=== PATIENT | female | born 1990 | race Caucasian/White ===

== ENCOUNTER 2020-05-16 16:30 | Emergency (ER) | payer SELFPAY ==
[2020-05-16 16:37] VITALS: BP 117/78; PULSE 97; RESP 18; TEMP 36.8; O2SAT 99; BMI 23.5
--- NOTE | 2020-05-16 16:41 | XRR_ITS ---
PROCEDURE INFORMATION: Exam: XR Chest, 1 View Exam date and time: 05/16/2020 7:17 PM Age: 30 years old Clinical indication: Dyspnea; Additional info: SOB TECHNIQUE: Imaging protocol: XR of the chest Views: 1 view. COMPARISON: No relevant prior studies available. FINDINGS: Lungs: Lungs are clear bilaterally. Pleural space: No pleural effusion. No pneumothorax. Heart/Mediastinum: The cardiac silhouette and mediastinal contours are unremarkable. Bones/joints: Unremarkable for age. XR/XR chest 1V portable [id number] IMPRESSION: No acute cardiopulmonary process.
[2020-05-16 17:11] LABS: Basophils % 0.4 %; Eosinophils % 0.2 %; Hematocrit 37.4 % (37.0-47.0); Hemoglobin 11.9 g/dL (11.5-15.3); Lymphocytes # 0.9 10^3/uL (0.8-4.8); Lymphocytes % 16.6 %; Mean Corpuscular HGB Conc 31.8 g/dL (30.0-36.0); Mean Corpuscular Hemoglobin 27.4 pg (28.0-34.0); Mean Corpuscular Volume 86.2 fL (81-99); Mean Platelet Volume 10.2 fL (7.4-10.4); Monocytes # 0.5 10^3/uL (0.2-0.9); Monocytes % 9.5 %; Neutrophils # 3.93 10^3/uL (1.8-7.7); Neutrophils % 73.1 %; Nucleated Red Blood Cells % 0 %; Platelet Count 199 10^3/cmm (130-400); Red Blood Count 4.34 10^6/uL (4.1-5.3); Red Cell Distribution Width 12.5 % (12.1-15.1); White Blood Count 5.4 10^3/uL (4.0-10.0)
[2020-05-16 17:24] LABS: Rapid Strep A Test Negative (Negative)
[2020-05-16 17:29] LABS: D Dimer 1.12 ug/mIFEU (0-0.59)
[2020-05-16 17:31] LABS: Influenza A by IFA Negative (Negative); Influenza B by IFA Negative (Negative)
[2020-05-16 17:35] LABS: Alanine Aminotransferase 95 U/L (0-33); Albumin Level 4.4 g/dL (3.5-5.2); Alkaline Phosphatase 112 IU/L (35-105); Anion Gap 12.4 (5-19); Aspartate Amino Transferase 78 U/L (0-32); Blood Urea Nitrogen 8 mg/dL (6-20); Calcium 8.7 mg/dL (8.5-10.5); Carbon Dioxide 26 mmol/L (22-29); Chloride 103 mmol/L (98-107); Globulin 3.6 g/dL (1.3-4.6); Glomerular Filtration Rate 143.9 mL/min (90-130); Glucose 130 mg/dL (65-115); Osmolality Calculated 284 mOsm/kg (285-295); Potassium 3.4 mmol/L (3.5-5.1); Sodium 138 mmol/L (136-145); Total Bilirubin 1.8 mg/dL (0.15-1.2)
--- NOTE | 2020-05-16 19:47 | CTR_ITS ---
PROCEDURE INFORMATION: Exam: CT Angiography Chest With Contrast Exam date and time: 05/16/2020 7:49 PM Age: 30 years old Clinical indication: Cough and fever and shortness of breath; Patient HX: C/O fever, cough , SOB w +d-dimer; Additional info: SOB, d-dimer elevated TECHNIQUE: Imaging protocol: Computed tomographic angiography of the chest with intravenous contrast. Sagittal and coronal reformatted images were created and reviewed. 3D rendering: MIP and/or 3D reconstructed images were created by the technologist. Radiation optimization: All CT scans at this facility use at least one of these dose optimization techniques: automated exposure control; mA and/or kV adjustment per patient size (includes targeted exams where dose is matched to clinical indication); or iterative reconstruction. Contrast material: OMNI 350; Contrast volume: 95 ml; Contrast route: INTRAVENOUS (IV); COMPARISON: CR XR chest 1V portable [id number] 05/16/2020 7:09 PM RADIATION DOSE METRICS: Total DLP (mGy-cm): 522.35 FINDINGS: Pulmonary arteries: No filling defects in the pulmonary arteries to suggest pulmonary embolism. Aorta: No evidence for aortic aneurysm or aortic dissection. 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 Lungs: Tracheobronchial structures are patent. Lungs are clear bilaterally. Noncalcified nodules in the right middle lobe and left upper lobe, the largest has an average measurement 4 mm (series 3, images 33, 36, and 38). Pleural space: No pneumothorax. No pleural effusion. Heart: The heart is unremarkable. No cardiomegaly. No pericardial effusion. Mediastinal space: The esophagus is unremarkable. Residual thymic tissue in the anterior/superior mediastinum. No mediastinal hematoma. No pneumomediastinum. Lymph nodes: No lymphadenopathy. Liver: The visualized liver is unremarkable. Pancreas: The visualized pancreas is unremarkable. No pancreatic ductal dilatation. Spleen: The visualized spleen is unremarkable. Adrenals: The right and left adrenal glands are unremarkable. Kidneys and ureters: The visualized right and left kidneys are unremarkable. Bones/joints: 2 bone islands in the left humeral head. 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 Soft tissues: The extrathoracic soft tissues are unremarkable. CT/CT angio chest PE protcl [id number] IMPRESSION: 1. No evidence for pulmonary embolism. 2. No acute cardiopulmonary process. 3. Noncalcified nodules in the right middle lobe and left upper lobe, the largest has an average measurement 4 mm. If patient does not have known cancer, follow up should be based on clinical information because of the low risk of cancer in this age group. (Zi et al., Fleischner Society, 2017) 4. Incidental/nonacute findings are listed in the report. Radiation Dose CTDIVOL = (mGy): DLP = 522.35 (mGy-cm)
[2020-05-16 20:15] VITALS: BP 122/63; PULSE 103; RESP 16; O2SAT 98
[2020-05-16 20:36] LABS: SARS Covid-2 Antigen Negative (Negative)
[2020-05-16] MEDS: iohexol 350 mg/mL 100 mL Btl IV (21:33)
[2020-05-16] MEDS: dexamethasone 4 mg/mL INJ 8 MG IVP (22:39)
[2020-05-16 22:47] VITALS: BP 104/65; PULSE 77; RESP 18; O2SAT 99
--- NOTE | 2020-05-17 04:37 | W.ED.SOB ---
HPI - SOB/Dyspnea General: Chief Complaint: Shortness of Breath/Dyspnea Stated Complaint: sob Time Seen by Provider: 05/16/20 19:25 History of Present Illness: HPI Narrative: 30-year-old healthy female presents with shortness of breath. Her main complaint is that of a sore throat. She has a sick child with viral pneumonia, COVID negative. Her is also tested negative for COVID. She is not had fever. She was tested for strep and is negative as an outpatient. She had some shortness of breath earlier which is mostly resolved. MD elicited complaint: shortness of breath Onset (ago): day(s) Context: recent illness Timing: intermittent Exacerbating factors: nothing Relieving factors: nothing Associated symptoms: Reports nausea and vomiting; Deny chest pain, dizziness or fever(s) Treatment prior to arrival: none Review of Systems Const: Denies: fever(s) Eyes: Denies: change in vision or blurry vision ENMT: Denies: swelling of lips/tongue, bleeding gums, dental pain, epistaxis, post nasal drip or sinus pain Card: Denies: chest pain Resp: Reports: dyspnea; Denies: productive cough, non-productive cough or wheezing GI: Reports: nausea and vomiting : Denies: dysuria or hematuria Musc: Reports: back pain; Denies: neck pain Skin/Breast: Denies: rash or erythema Neuro: Denies: dizziness Psych: Denies: anxiety PFSH ED PFSH: Medical History (Updated 05/16/20 @ 22:20 by Luis Alfredo Carrillo DO) Fracture (~1996) Left arm Surgical History No significant past surgical history Family History Unknown Cancer Maternal great aunt - Breast cancer Grandfather Cancer Throat cancer Social History Smoking and tobacco status: former smoker Quit status (tobacco): has quit using tobacco Year quit tobacco: 05/2015 Former quit date comment: Started smoking at age 20 smoked up to 3 packs per week until she quit 05/21 Alcohol intake: never Other details last substance use: Denies drug use Number of children: 4 Female Reproductive History: Date of last menstrual period: 05/16/20 Para: 4 Spontaneous abortions: No Physical Exam Const: GENERAL APPEARANCE: well developed ORIENTATION/CONSCIOUSNESS: Yes oriented to person, Yes oriented to place and Yes oriented to time HENMT: COMMON NORMALS: normocephalic, external ears normal and Normal external nose present HEAD & SCALP: normocephalic FACE & SINUS: normal facial exam NOSE: Normal external nose present and No nasal discharge present EXTERNAL EAR: Yes external ears normal TEETH & GINGIVA: no abnormal tooth and associated gingiva THROAT: abnormal tonsil bilateral erythema and exudates; no peritonsillar mass Eye: COMMON NORMALS: Equal, round and reactive pupils present, EOMs intact bilaterally and conjunctivae normal EYELID: eyelids normal CONJUNCTIVA: Yes conjunctivae normal PUPIL: Yes Equal, round and reactive pupils present Neck/C-Spine: GENERAL: No tracheal deviation Chest: COMMONS NORMALS: normal inspection of the chest CHEST: No tenderness Resp: COMMON NORMALS: clear to auscultation bilaterally EFFORT & INSPECTION: No tachypneic, No respiratory distress, No retractions, No uses accessory muscles and No tracheal deviation AUSCULTATION: clear to auscultation bilaterally, no rhonchi, no wheezes and lung sounds not diminished Cardio: COMMON NORMALS: regular rate and regular rhythm RATE: regular rate RHYTHM: regular rhythm HEART SOUNDS: no murmurs PERIPHERAL PULSES: radial pulses present GI: INSPECTION: No abdominal distension AUSCULTATION: No Hyperactive bowel sounds present and No Hypoactive bowel sounds present PALPATION: No Guarding due to palpation present (GI) and No Rigid due to palpation PERCUSSION: no dullness to percussion and no tympanic to percussion Neuro: SENSORIUM/ORIENTATION: Yes oriented to person, Yes oriented to place and Yes oriented to time Psych: COMMON NORMALS: mental status grossly normal Skin: COMMON NORMALS: no rashes or lesions noted GENERAL SKIN EXAM: no rashes or lesions noted Course Vital Signs: Vital signs: Vital Signs Temperature 98.3 F 05/16/20 16:37 Pulse Rate 77 05/16/20 22:47 Respiratory Rate 18 05/16/20 22:47 Blood Pressure 104/65 05/16/20 22:47 Pulse Oximetry 99 05/16/20 22:47 MDM - SOB/Dyspnea MDM Narrative: Medical decision making narrative: 30-year-old female with mainly viral symptoms. Earlier in the week, she had had a right-sided pinkeye, some throat pain. This progressed to worsening pharyngitis, and some shortness of breath that is now resolved. She had a d-dimer that was 1.1 ordered in triage. Her COVID test is negative. CTA is performed due to the d-dimer, and is negative as well. No pneumonia. Strep was repeated and is negative as well. There is no evidence of peritonsillar abscess. She will be treated for viral pharyngitis. Lab Data: Labs: Lab Results 05/16/20 05/16/20 05/16/20 Range/Units 16:45 16:45 17:08 WBC 5.4 (4.0-10.0) 10^3/ uL RBC 4.34 (4.1-5.3) 10^6/u L Hgb 11.9 (11.5-15.3) g/dL Hct 37.4 (37.0-47.0) % MCV 86.2 (81-99) fL MCH 27.4 L (28.0-34.0) pg MCHC 31.8 (30.0-36.0) g/dL RDW 12.5 (12.1-15.1) % Plt Count 199 (130-400) 10^3/c mm MPV 10.2 (7.4-10.4) fL Neut % (Auto) 73.1 % Lymph % (Auto) 16.6 % [place] % (Auto) 9.5 % Eos % (Auto) 0.2 % Baso % (Auto) 0.4 % Neut # (Auto) 3.93 (1.8-7.7) 10^3/u L Lymph # (Auto) 0.9 (0.8-4.8) 10^3/u L [place] # (Auto) 0.5 (0.2-0.9) 10^3/u L Eos # (Auto) 0.0 (0.0-0.8) 10^3/u L Baso # (Auto) 0.0 (0.0-0.1) 10^3/u L Nucleated RBC % (a uto) 0 % Nucleated RBCs # 0.0 /100WBC D-Dimer (0-0.59) ug/mIFE U Sodium (136-145) mmol/L Potassium (3.5-5.1) mmol/L Chloride (98-107) mmol/L Carbon Dioxide (22-29) mmol/L Anion Gap (5-19) BUN (6-20) mg/dL Creatinine (0.5-0.9) mg/dL GFR Calculation (90-130) mL/min Glucose (65-115) mg/dL Calculated Osmolal ity (285-295) mOsm/k g Calcium (8.5-10.5) mg/dL Total Bilirubin (0.15-1.2) mg/dL AST (0-32) U/L ALT (0-33) U/L Alkaline Phosphata se (35-105) IU/L Total Protein (6.6-8.7) g/dL Albumin (3.5-5.2) g/dL Globulin (1.3-4.6) g/dL Influenza Type A A g Negative (Negative) Influenza Type B A g Negative (Negative) SARS-CoV-2 Ag (Rap id) (Negative) Group A Strep Rapi d Negative (Negative) 05/16/20 05/16/20 05/16/20 Range/Units 17:08 17:08 20:08 WBC (4.0-10.0) 10^3/ uL RBC (4.1-5.3) 10^6/u L Hgb (11.5-15.3) g/dL Hct (37.0-47.0) % MCV (81-99) fL MCH (28.0-34.0) pg MCHC (30.0-36.0) g/dL RDW (12.1-15.1) % Plt Count (130-400) 10^3/c mm MPV (7.4-10.4) fL Neut % (Auto) % Lymph % (Auto) % [place] % (Auto) % Eos % (Auto) % Baso % (Auto) % Neut # (Auto) (1.8-7.7) 10^3/u L Lymph # (Auto) (0.8-4.8) 10^3/u L [place] # (Auto) (0.2-0.9) 10^3/u L Eos # (Auto) (0.0-0.8) 10^3/u L Baso # (Auto) (0.0-0.1) 10^3/u L Nucleated RBC % (a uto) % Nucleated RBCs # /100WBC D-Dimer 1.12 H (0-0.59) ug/mIFE U Sodium 138 (136-145) mmol/L Potassium 3.4 L (3.5-5.1) mmol/L Chloride 103 (98-107) mmol/L Carbon Dioxide 26 (22-29) mmol/L Anion Gap 12.4 (5-19) BUN 8 (6-20) mg/dL Creatinine 0.5 (0.5-0.9) mg/dL GFR Calculation 143.9 H (90-130) mL/min Glucose 130 H (65-115) mg/dL Calculated Osmolal ity 284 L (285-295) mOsm/k g Calcium 8.7 (8.5-10.5) mg/dL Total Bilirubin 1.8 H (0.15-1.2) mg/dL AST 78 H (0-32) U/L ALT 95 H (0-33) U/L Alkaline Phosphata se 112 H (35-105) IU/L Total Protein 8.0 (6.6-8.7) g/dL Albumin 4.4 (3.5-5.2) g/dL Globulin 3.6 (1.3-4.6) g/dL Influenza Type A A g (Negative) Influenza Type B A g (Negative) SARS-CoV-2 Ag (Rap id) Negative (Negative) Group A Strep Rapi d (Negative) Discharge Plan Discharge Patient Disposition: Home Clinical Impression: Acute viral pharyngitis Condition: Stable Prescriptions: New Zofran 4 mg tablet 4 mg PO Q6H Qty: 10 RF: 0 [place] 5-325 mg tablet 1 tab PO Q8H PRN (Reason: pain) Qty: 7 RF: 0 No Action No Known Home Medications RF: 0 Discharge Orders: Discharge Order (Routine); Ordered 05/16/20 Ordered By: Luis Alfredo Carrillo Discharge Diet: Advance as tolerated Discharge Activity: Increase activity as tolerated Patient Instructions: Pharyngitis (ED) Activity Restrictions/Additional Instructions: Return for continued fever greater than 100, vomiting liquids or medications, other concerning symptoms. Discharge Date/Time: 05/16/20 22:48 Coding Level of Care Code ED Medical Assistant Cardiology for Chg Fwd Exam Comprehensive
== END 2020-05-16 22:48 | disposition home or self-care (01) ==
PROVIDERS: Family Medicine; Emergency Provider Emergency Medicine
DX: J02.8 Acute pharyngitis due to other specified organisms (principal); Z87.891 Personal history of nicotine dependence
CPT/HCPCS: 12345; 36415; 71045; 71275; 80053; 85025; 85378; 87081; 87426; 87804; 87880; 96374; 99282; 99283; J1100; Q9967

== ENCOUNTER → 2020-11-26 08:59 | Outpatient (BNVA) | payer MEDICAID, SELFPAY | PROVIDERS: PCP Electrodiagnostic Medicine; Visit Provider Obstetrics & Gynecology | DX: Z30.9 Encounter for contraceptive management, unspecified (principal); Z30.09 Encounter for other general counseling and advice on contraception | CPT/HCPCS: 81025 ==

== ENCOUNTER 2021-05-13 23:30 | Emergency (ER) | payer OTHER, SELFPAY ==
[2021-05-13 23:54] VITALS: BP 122/80; PULSE 86; RESP 16; TEMP 37; O2SAT 99; BMI 24.9
--- NOTE | 2021-05-14 00:36 | W.ED.EXTPRO ---
HPI - Extremity Problem General: Chief complaint: Extremity Problem,Nontraumatic Stated complaint: Left leg pain Time Seen by Provider: 05/14/21 00:36 History of Present Illness: HPI Narrative: 31-year-old female comes in today with lower leg discomfort. Patient reports that it is worse on the left leg but she gets pain in both legs. Patient reports that when she had COVID-19 she had significant discomfort in bilateral lower extremities. Patient 2 days ago had been given the [employer] vaccine and since then had increased pain and discomfort to the lower extremities. Patient appears well. Patient appears no acute distress. Patient denies any fever or nausea or vomiting. Review of Systems General: Reports: 10 or more systems reviewed and unremarkable except in HPI and below Musc: Reports: other (Bilateral lower extremity pain) PFSH ED PFSH: Medical History No pertinent past medical history Denies diabetes, asthma, hypertension, seizures, DVT/PE PCP: Dr. Richter Surgical History No significant past surgical history Family History Grandfather Cancer Throat cancer Stroke maternal Family/Other Breast cancer maternal great aunt Mother Hypertension Denies family history of Colon cancer Ovarian cancer Diabetes Hyperlipidemia Uterine cancer Thyroid condition Social History Smoking and tobacco status: former smoker Quit status (tobacco): has quit using tobacco Year quit tobacco: 05/2015 Former quit date comment: Started smoking at age 20 smoked up to 3 packs per week until she quit 05/21 Alcohol intake: never Other details last substance use: Denies drug use Number of children: 4 Female Reproductive History: Date of last menstrual period: 05/16/20 Para: 4 Spontaneous abortions: No Physical Exam Const: COMMON NORMALS: no acute distress and patient oriented x3 GENERAL APPEARANCE: cooperative HENMT: COMMON NORMALS: normocephalic and Normal external nose present HEAD & SCALP: normal to inspection and normocephalic NOSE: Normal external nose present MOUTH: Normal oral and palatal mucosa present THROAT: posterior oropharynx normal Eye: GENERAL EYE: appearance normal, both eyes and all related structures Neck/C-Spine: COMMON NORMALS: full ROM Lymph: LYMPHATIC: no lymphadenopathy noted Chest: COMMONS NORMALS: normal inspection of the chest Resp: COMMON NORMALS: normal respiratory effort EFFORT & INSPECTION: Yes able to speak in complete sentences Cardio: COMMON NORMALS: regular rate and regular rhythm RATE: regular rate RHYTHM: regular rhythm GI: COMMON NORMALS: non-tender Back/Pelvis: COMMON NORMALS: thoracic and lumbar spine normal to inspection Extremity: COMMON NORMALS: normal to inspection Neuro: COMMON NORMALS: patient oriented x3 and moves all extremities Psych: COMMON NORMALS: mental status grossly normal and cooperative Skin: COMMON NORMALS: no rashes or lesions noted GENERAL SKIN EXAM: no rashes or lesions noted Course Vital Signs: Vital signs: Vital Signs Temperature 98.2 F 05/14/21 00:37 Pulse Rate 86 05/13/21 23:54 Respiratory Rate 16 05/13/21 23:54 Blood Pressure 129/75 05/14/21 00:37 Pulse Oximetry 100 05/14/21 00:37 MDM - Extremity (Nontraumatic) MDM Narrative: Medical decision making narrative: Patient comes in today for complaints of lower extremity pains. Patient reports at night it seems to be worse. Patient states that it reminds her when she had COVID-19 last month. On exam patient has no swelling or edema to the lower extremities. Pulses are intact. No redness or warmth is noted in the extremities. No spinal tenderness is noted. No sacroiliac tenderness is noted. Differential diagnosis includes peripheral neuropathy, post viral myalgias, sciatica. Patient's description sounds like a sciatica versus a neuralgia. We will go ahead and give her some gabapentin 300 mg to use at bedtime to see if that will help with her discomfort. Reassured patient that at this time I do not see any sign of DVT or cellulitis. Recommended monitoring for redness and swelling of the extremities. Patient reported understanding and agreed to plan. Discharge Plan Discharge Patient Disposition: Home Clinical Impression: Neuralgia Condition: Stable Prescriptions: New gabapentin 300 mg capsule 300 mg PO .hs Qty: 14 RF: 0 No Action medroxyprogesterone [Depo-Provera] 150 mg/mL suspension 150 mg IM .EVERY 90 DAYS Qty: 1 RF: 3 Discharge Orders: Discharge ED (Routine); Ordered 05/14/21 Ordered By: Eric Murillo Referrals: Sander Richter, [Primary Care Provider] - Discharge Diet: Usual diet Discharge Activity: Increase activity as tolerated Patient Instructions: Peripheral Neuropathy (ED), Opioid Safety Activity Restrictions/Additional Instructions: Drink plenty of water. Activity as tolerated. Use ice or heat for further comfort. Follow-up with primary care for further instruction. Return to the ER for new concerns. Monitor leg for increased redness or swelling, as this may be a sign of a DVT or cellulitis infection. 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
[2021-05-14 00:37] VITALS: BP 129/75; TEMP 36.8; O2SAT 100
[2021-05-14 00:52] VITALS: PULSE 74
[2021-05-14 00:55] VITALS: BP 129/75; PULSE 72; RESP 18; O2SAT 98
== END 2021-05-14 00:56 | disposition home or self-care (01) ==
PROVIDERS: Emergency Provider Nurse Practitioner Family; PCP Electrodiagnostic Medicine
DX: M79.2 Neuralgia and neuritis, unspecified (principal); Z86.16 Personal history of COVID-19; Z87.891 Personal history of nicotine dependence
CPT/HCPCS: 99282

== ENCOUNTER → 2021-12-01 08:30 | Outpatient (BNVA) | payer OTHER, SELFPAY | PROVIDERS: PCP Electrodiagnostic Medicine; Visit Provider Obstetrics & Gynecology | DX: Z12.4 Encounter for screening for malignant neoplasm of cervix (principal) | CPT/HCPCS: 87624 ==

== ENCOUNTER → 2024-03-07 11:00 | Outpatient (BNVA) | payer OTHER, SELFPAY | PROVIDERS: PCP Electrodiagnostic Medicine; Visit Provider Nurse Practitioner Women's Health | DX: Z01.419 Encounter for gynecological examination (general) (routine) without abnormal findings (principal) | CPT/HCPCS: 82306; 84443 ==

== ENCOUNTER → 2025-03-11 12:44 | Outpatient (BNVA) | payer OTHER, SELFPAY | PROVIDERS: PCP Electrodiagnostic Medicine; Visit Provider Nurse Practitioner Women's Health | DX: Z01.419 Encounter for gynecological examination (general) (routine) without abnormal findings (principal); Z11.3 Encounter for screening for infections with a predominantly sexual mode of transmission | CPT/HCPCS: 80053; 82306; 83036; 84443; 85025; 86592; 86705; 86706; 86709; 86803; 87340; 87491; 87591; 87661; 87806 ==